=== PATIENT | female | born 1995 ===

== ENCOUNTER 2021-03-15 07:20 | Inpatient (IN) | payer OTHER ==
[2021-03-15] MEDS: ELECTROLYTE-148 SOLN 1,000 ML IV SCH (08:40)
[2021-03-15 09:06] LABS: BASO % 0.1 % (0-2.0); EOS % 0.3 % (0-4.5); HEMATOCRIT 40.7 % (32.4-45.2); HEMOGLOBIN 14.4 GM/dL (10.7-15.3); LYMPH % 19.3 % (8-40); MCH 31.2 pg (25.7-33.7); MCHC 35.3 g/dl (32.0-36.0); MEAN CELL VOLUME 88.4 fl (80-96); MEAN PLT VOLUME 9.7 fl (7.5-11.1); MONO % 4.3 % (3.8-10.2); PLATELET COUNT 174 K/MM3 (134-434); RBC 4.61 M/mm3 (3.60-5.2); RDW 13.5 % (11.6-15.6); WHITE BLOOD COUNT 8.5 K/mm3 (4.0-10.0)
[2021-03-15 09:15] LABS: INR 0.95 (0.83-1.09); PROTHROMBIN TIME (PATIENT) 11.5 SEC (9.7-13.0)
[2021-03-15 09:17] LABS: ACTIVATED PTT 28.5 SECONDS (25.2-36.5)
[2021-03-15] MEDS ORDERED: OXYTOCIN 30 UNITS in 0.9% NS 30 UNIT/500 ML INFUS.BAG IVPB ONE (09:20)
[2021-03-15 09:24] LABS: CALCIUM 8.3 mg/dL (8.5-10.1)
[2021-03-15 09:25] LABS: BLOOD UREA NITROGEN 5.7 mg/dL (7-18)
[2021-03-15 09:28] LABS: CREATININE 0.7 mg/dL (0.55-1.3)
[2021-03-15] MEDS: OXYTOCIN 30 UNITS in 0.9% NS 30 UNIT/500 ML INFUS.BAG IVPB SCH (09:30)
[2021-03-15 10:20] VITALS: BMI 36.4
[2021-03-15 13:03] LABS: HIV INTERPRETATION NEGATIVE (NEGATIVE)
[2021-03-15] MEDS ORDERED: PCA PUMP NR ONE (22:24)
[2021-03-15] MEDS ORDERED: FENTANYL/BUPIVACAINE/NS/PF - PCEA - 50 ML DISP.SYRIN EP ONE (22:25)
[2021-03-15] MEDS ORDERED: NALOXONE HCL 0.4 MG/ML VIAL IVPUSH PRN (23:03)
[2021-03-15] MEDS ORDERED: FENTANYL/BUPIVACAINE/NS/PF - PCEA - 50 ML DISP.SYRIN EP SCH (23:15)
[2021-03-16] MEDS ORDERED: LIDOCAINE HCL 1% PRESERVATIVE FREE - 30ML VIAL ONE (02:28)
[2021-03-16] MEDS ORDERED: OXYTOCIN 20 UNITS in 0.9% NS 20 UNIT/1,000 ML INFUS.BAG IV ONE (02:28)
[2021-03-16] MEDS ORDERED: oxyCODONE HCL 5 MG TABLET PO PRN (03:43)
[2021-03-16] MEDS ORDERED: WITCH HAZEL 50% (TUCKS) 40 PAD/JAR PAD TP PRN (03:43)
[2021-03-16] MEDS ORDERED: BISACODYL 10 MG SUPP.RECT RC PRN (03:43)
[2021-03-16] MEDS ORDERED: BENZOCAINE 28 GM HEMORRHOIDAL OINTMENT TP PRN (03:43)
[2021-03-16] MEDS ORDERED: BENZOCAINE 20% 57 GM BOTTLE TP PRN (03:43)
[2021-03-16] MEDS ORDERED: METHYLERGONOVINE MALEATE 0.2 MG/1 ML AMP IM PRN (03:43)
[2021-03-16] MEDS ORDERED: OXYTOCIN 20 UNITS in 0.9% NS 20 UNIT/1,000 ML INFUS.BAG IV SCH (03:45)
[2021-03-16 03:55] LABS: CORD HCO3 19.7 mmHg (20-29); CORD PCO2 58.7 mmHg (30-78); CORD pH 7.143 (7.14-7.44)
[2021-03-16 03:59] LABS: CORD BASE EXCESS -8.1 mmol/L (0-2); CORD HCO3 18.3 mmHg (20-29); CORD PCO2 40.5 mmHg (30-78); CORD pH 7.273 (7.14-7.44)
[2021-03-16] MEDS: IBUPROFEN 600 MG TABLET (FP) PO PRN ×3 (06:32→20:50)
[2021-03-16] MEDS: ACETAMINOPHEN 325 MG TABLET (FP) PO PRN ×2 (14:08→20:51)
[2021-03-16] MEDS: OXYTOCIN 30 UNITS in 0.9% NS 30 UNIT/500 ML INFUS.BAG IVPB SCH (20:31)
[2021-03-16] MEDS: ELECTROLYTE-148 SOLN 1,000 ML IV SCH ×2 (20:31)
[2021-03-17 08:52] LABS: BASO % 0.1 % (0-2.0); EOS % 0.9 % (0-4.5); HEMATOCRIT 39.2 % (32.4-45.2); HEMOGLOBIN 13.7 GM/dL (10.7-15.3); LYMPH % 23.2 % (8-40); MCH 31.2 pg (25.7-33.7); MCHC 34.8 g/dl (32.0-36.0); MEAN CELL VOLUME 89.5 fl (80-96); MEAN PLT VOLUME 10.1 fl (7.5-11.1); MONO % 4.3 % (3.8-10.2); NEUT % 71.5 % (42.8-82.8); PLATELET COUNT 169 K/MM3 (134-434); RBC 4.38 M/mm3 (3.60-5.2); RDW 13.7 % (11.6-15.6); WHITE BLOOD COUNT 10.6 K/mm3 (4.0-10.0)
[2021-03-17] MEDS: IBUPROFEN 600 MG TABLET (FP) PO PRN (15:01)
[2021-03-17] MEDS: ACETAMINOPHEN 325 MG TABLET (FP) PO PRN (15:02)
[2021-03-17] MEDS ORDERED: SENNOSIDES/DOCUSATE COMBO (SENNA PLUS) TABLET (UD) PO PRN (22:00)
[2021-03-18 11:22] VITALS: BP 100/70; PULSE 64; TEMP 98.2
== END 2021-03-18 17:35 | disposition home or self-care (01) | DRG 807 ==
LOC: JLDR 07:20 → J3W 03-16 05:20
PROVIDERS: ADMIT Obstetrics & Gynecology; ATTEND Obstetrics & Gynecology
PROC: 10907ZC Drainage of Amniotic Fluid, Therapeutic from Products of Conception, Via Natural or Artificial Opening (ICD-10-PCS; 2021-03-15)
PROC: 3E033VJ Introduction of Other Hormone into Peripheral Vein, Percutaneous Approach (ICD-10-PCS; 2021-03-15)
PROC: 10E0XZZ Delivery of Products of Conception, External Approach (ICD-10-PCS; principal; 2021-03-16)
PROC: 0KQM0ZZ Repair Perineum Muscle, Open Approach (ICD-10-PCS; 2021-03-16)
DX: O48.0 Post-term pregnancy (principal); Z37.0 Single live birth; O99.214 Obesity complicating childbirth; E66.9 Obesity, unspecified; O70.1 Second degree perineal laceration during delivery; Z3A.40 40 weeks gestation of pregnancy
CPT/HCPCS: 36415; 36600; 59409; 80048; 82803; 85025; 85461; 85610; 85730; 86780; 86850; 86900; 86901; 86999; 87389; C9803; U0003; U0005

== ENCOUNTER 2022-08-17 07:10 | Inpatient (IN) | payer OTHER ==
[2022-08-17 08:30] VITALS: BMI 37.3
[2022-08-17 09:13] LABS: BASO % 0.1 % (0-2.0); EOS % 0.5 % (0-4.5); HEMATOCRIT 37.5 % (32.4-45.2); HEMOGLOBIN 12.9 GM/dL (10.7-15.3); LYMPH % 16.8 % (8-40); MCH 29.7 pg (25.7-33.7); MCHC 34.3 g/dl (32.0-36.0); MEAN CELL VOLUME 86.6 fl (80-96); MEAN PLT VOLUME 9.1 fl (7.5-11.1); MONO % 4.5 % (3.8-10.2); NEUT % 78.1 % (42.8-82.8); PLATELET COUNT 202 10^3/uL (134-434); RBC 4.33 M/mm3 (3.60-5.2); RDW 13.3 % (11.6-15.6); WHITE BLOOD COUNT 9.3 K/mm3 (4.0-10.0)
[2022-08-17] MEDS ORDERED: ELECTROLYTE-148 SOLN 1,000 ML IV SCH (09:15)
[2022-08-17 09:19] LABS: INR 1.01 (0.83-1.09); PROTHROMBIN TIME (PATIENT) 11.6 SEC (9.7-13.0)
[2022-08-17 09:22] LABS: ACTIVATED PTT 28.7 SECONDS (25.2-36.5)
[2022-08-17] MEDS ORDERED: AMPICILLIN - 2 GM in SODIUM CHLORIDE 100 ML IVPB ONE (09:22)
[2022-08-17] MEDS ORDERED: AMPICILLIN - 1 GM in SODIUM CHLORIDE 100 ML IVPB SCH (09:30)
[2022-08-17] MEDS ORDERED: OXYTOCIN 30 UNITS in 0.9% NS 30 UNIT/500 ML INFUS.BAG IVPB SCH (09:30)
[2022-08-17 09:31] LABS: CALCIUM 8.4 mg/dL (8.5-10.1)
[2022-08-17 09:32] LABS: BLOOD UREA NITROGEN 5.7 mg/dL (7-18)
[2022-08-17] MEDS ORDERED: AMPICILLIN SODIUM 2 GM VIAL ONE (09:33)
[2022-08-17 09:35] LABS: CREATININE 0.6 mg/dL (0.55-1.3)
[2022-08-17] MEDS ORDERED: FENTANYL/BUPIVACAINE/NS/PF - PCEA - 50 ML DISP.SYRIN EP ONE ×3 (11:36→20:33)
[2022-08-17] MEDS ORDERED: NALOXONE HCL 0.4 MG/ML VIAL IVPUSH PRN (12:50)
[2022-08-17] MEDS ORDERED: FENTANYL/BUPIVACAINE/NS/PF - PCEA - 50 ML DISP.SYRIN EP SCH (13:00)
[2022-08-17] MEDS: AMPICILLIN - 1 GM in SODIUM CHLORIDE 100 ML IVPB SCH ×3 (13:00→21:15)
[2022-08-17] MEDS ORDERED: AMPICILLIN SODIUM 1 GM VIAL ONE ×3 (13:35→21:44)
[2022-08-17] MEDS ORDERED: OXYTOCIN 20 UNITS in 0.9% NS 20 UNIT/1,000 ML INFUS.BAG IV ONE (21:37)
[2022-08-17] MEDS ORDERED: BENZOCAINE 28 GM HEMORRHOIDAL OINTMENT TP PRN (22:17)
[2022-08-17] MEDS ORDERED: oxyCODONE HCL 5 MG TABLET PO PRN (22:17)
[2022-08-17] MEDS ORDERED: BENZOCAINE 20% 57 GM BOTTLE TP PRN (22:17)
[2022-08-17] MEDS ORDERED: METHYLERGONOVINE MALEATE 0.2 MG/1 ML AMP IM PRN (22:17)
[2022-08-17] MEDS ORDERED: WITCH HAZEL 50% (TUCKS) 40 PAD/JAR PAD TP PRN (22:17)
[2022-08-17] MEDS ORDERED: BISACODYL 10 MG SUPP.RECT RC PRN (22:17)
[2022-08-17] MEDS ORDERED: ACETAMINOPHEN 325 MG TABLET (FP) PO PRN (22:17)
[2022-08-17] MEDS ORDERED: OXYTOCIN 20 UNITS in 0.9% NS 20 UNIT/1,000 ML INFUS.BAG IV SCH (22:30)
[2022-08-17 23:42] LABS: CORD BASE EXCESS -3.1 mmol/L (0-2); CORD HCO3 22.4 mmHg (20-29); CORD PCO2 41.5 mmHg (30-78); CORD pH 7.35 (7.14-7.44)
[2022-08-17 23:44] LABS: CORD BASE EXCESS -4.7 mmol/L (0-2); CORD HCO3 21.2 mmHg (20-29); CORD PCO2 42.3 mmHg (30-78); CORD pH 7.318 (7.14-7.44)
[2022-08-18] MEDS: IBUPROFEN 600 MG TABLET (FP) PO PRN ×3 (02:04→19:56)
[2022-08-18] MEDS: AMPICILLIN - 1 GM in SODIUM CHLORIDE 100 ML IVPB SCH (02:37)
[2022-08-18 08:55] LABS: BASO % 0.4 % (0-2.0); EOS % 0.4 % (0-4.5); HEMOGLOBIN 11.9 GM/dL (10.7-15.3); LYMPH % 16.1 % (8-40); MCH 29.7 pg (25.7-33.7); MEAN CELL VOLUME 87.3 fl (80-96); MONO % 5.4 % (3.8-10.2); NEUT % 77.7 % (42.8-82.8); PLATELET COUNT 206 10^3/uL (134-434); RBC 4.01 M/mm3 (3.60-5.2); RDW 13.5 % (11.6-15.6); WHITE BLOOD COUNT 13.6 K/mm3 (4.0-10.0)
[2022-08-18] MEDS: PRENATAL VITAMINS W/ FOLIC ACID TABLET (FP) PO SCH (09:34)
[2022-08-18] MEDS ORDERED: FLU VACC QS2022-23(6MOS UP)/PF 60 MCG/0.5 ML SYRINGE IM ONE (10:00)
[2022-08-18 21:18] VITALS: PULSE 76
[2022-08-18] MEDS ORDERED: SENNOSIDES/DOCUSATE COMBO (SENNA PLUS) TABLET (UD) PO PRN (22:00)
[2022-08-19] MEDS: PRENATAL VITAMINS W/ FOLIC ACID TABLET (FP) PO SCH (09:12)
[2022-08-19] MEDS: IBUPROFEN 600 MG TABLET (FP) PO PRN (09:12)
[2022-08-19 10:22] VITALS: BP 122/78; RESP 16; TEMP 98.5
== END 2022-08-19 14:25 | disposition home or self-care (01) | DRG 807 ==
LOC: JLDR 07:10 → J3W 08-18 00:21
PROVIDERS: ADMIT Obstetrics & Gynecology; ATTEND Obstetrics & Gynecology
PROC: 10E0XZZ Delivery of Products of Conception, External Approach (ICD-10-PCS; principal; 2022-08-17)
PROC: 3E0334Z Introduction of Serum, Toxoid and Vaccine into Peripheral Vein, Percutaneous Approach (ICD-10-PCS; 2022-08-18)
DX: O99.214 Obesity complicating childbirth (principal); Z37.0 Single live birth; Z29.13 Encounter for prophylactic Rho(D) immune globulin; Z3A.39 39 weeks gestation of pregnancy
CPT/HCPCS: 36415; 36600; 59409; 80048; 82803; 85025; 85461; 85610; 85730; 86780; 86850; 86900; 86901; 86999; C9803-CS; G0008; Q2036; U0003; U0005